=== PATIENT | male | born 1980 | race Caucasian/White ===

== ENCOUNTER 2017-09-17 11:21 | Emergency (ER) | payer OTHER ==
[~2017-09-17] VITALS: Ht 182.9 cm; Wt 97.5 kg
[2017-09-17] MEDS ORDERED: AMOXICILLIN 50500 MG PO (11:44)
[2017-09-17] MEDS ORDERED: LISINOPRIL10 MG PO (11:44)
[2017-09-17 11:56] VITALS: BP 160/68
== END 2017-09-17 12:05 | disposition home or self-care (01) ==
LOC: M.ERS 11:21
DX: N48.1 Balanitis (principal); I10 Essential (primary) hypertension

== ENCOUNTER 2019-02-12 19:19 | Emergency (ER) | payer OTHER ==
[~2019-02-12] VITALS: Ht 180.3 cm; Wt 99.8 kg
[~2019-02-12 19:19] MED LIST: AMOXICILLIN 50500 MG PO; LISINOPRIL10 MG PO
[2019-02-12] MEDS ORDERED: BUSPIRONE HCL10 MG PO (19:29)
[2019-02-12] MEDS ORDERED: COZAAR 25 MG TA25 M1 PO (19:29)
[2019-02-12] MEDS ORDERED: HYDROXYZINE PAM25 M1 PO (20:41)
[2019-02-12 20:54] VITALS: BP 136/78
== END 2019-02-12 20:55 | disposition home or self-care (01) ==
LOC: M.ERS 19:19
DX: F41.9 Anxiety disorder, unspecified (principal); I10 Essential (primary) hypertension; Z88.1 Allergy status to other antibiotic agents; Z88.2 Allergy status to sulfonamides

== ENCOUNTER → 2019-12-15 | Emergency (ER) | payer OTHER ==
[~2019-12-15] VITALS: Ht 182.9 cm; Wt 99.8 kg
[~2019-12-15] MED LIST changes: +BUSPIRONE HCL10 MG PO; +COZAAR 25 MG TA25 M1 PO; +HYDROXYZINE HCL25 M2 PO; +HYDROXYZINE PAM25 M1 PO
[2019-12-15 00:37] VITALS: BP 138/88
== END ==
LOC: M.ERS 00:33
DX: F41.9 Anxiety disorder, unspecified (principal); I10 Essential (primary) hypertension; Z88.1 Allergy status to other antibiotic agents; Z88.2 Allergy status to sulfonamides